=== PATIENT | female | born 1985 | race African-American/Black ===

== ENCOUNTER 2021-02-17 14:10 | Emergency (ER) | payer MEDICAID, SELFPAY ==
[~2021-02-17] VITALS: Ht 154.9 cm; Wt 90.9 kg
[2021-02-17] MEDS ORDERED: HYDROCODONE/ACETAMINOPHEN 5-325 MG TABLET PO ONE (16:30)
[2021-02-17] MEDS ORDERED: GuaiFENesin/D-METHORPHAN [SUGAR-FREE] 200-20MG/10 ML SYRUP UDCUP PO ONE (16:30)
[2021-02-17 16:41] VITALS: BP 144/102
== END 2021-02-17 16:42 | disposition home or self-care (01) ==
LOC: EMS 14:10
DX: J40 Bronchitis, not specified as acute or chronic (principal); R07.89 Other chest pain; F17.210 Nicotine dependence, cigarettes, uncomplicated
CPT/HCPCS: 71045; 99283

== ENCOUNTER 2024-05-17 20:55 | Emergency (ER) | payer MEDICAID ==
[~2024-05-17] VITALS: Ht 154.9 cm; Wt 113.6 kg
[2024-05-17 21:07] VITALS: BP 166/104; PULSE 84; RESP 20; TEMP 98.6; O2SAT 99
[2024-05-17] MEDS ORDERED: PROP10TA73 PO (21:10)
[2024-05-17 21:18] LABS: COVID AG,FIA SOURCE NASAL SWAB
[2024-05-17 21:43] LABS: INFLUENZA TYPE A NEGATIVE FOR TYPE A (NEGATIVE); INFLUENZA TYPE B NEGATIVE FOR TYPE B (NEGATIVE); SARS-COV2 (COVID) ANTIGEN,FIA Negative (Negative)
[2024-05-17] MEDS: ACETAMINOPHEN 500 MG TABLET PO ONE (22:43)
[2024-05-17] MEDS: CLINDAMYCIN HCL 150 MG CAPSULE PO ONE (22:43)
[2024-05-17] MEDS ORDERED: CLIN300C58 PO (22:51)
== END 2024-05-17 23:08 | disposition home or self-care (01) ==
LOC: EMS 21:05
DX: H66.91 Otitis media, unspecified, right ear (principal); R05.9 Cough, unspecified; I10 Essential (primary) hypertension; F12.90 Cannabis use, unspecified, uncomplicated; Z88.0 Allergy status to penicillin; Z79.899 Other long term (current) drug therapy; Z20.822 Contact with and (suspected) exposure to COVID-19
CPT/HCPCS: 87430; 87804; 99283